=== PATIENT | female | born 1995 | race Caucasian/White ===

== ENCOUNTER 2017-09-11 01:03 | Emergency (ER) | payer BC ==
[~2017-09-11] VITALS: Ht 172.7 cm; Wt 136.1 kg
[~2017-09-11 01:03] MED LIST: ALBU90OI; ALBU90OI INH; AZIT200SU PO; MONT5TCH; RXNEOPOLHC AD
[2017-09-11] MEDS ORDERED: SERT100 PO (01:55)
[2017-09-11] MEDS ORDERED: PSEU120ER PO (06:12)
[2017-09-11] MEDS ORDERED: Zithromax250 MG PO (06:12)
[2017-09-11] MEDS ORDERED: IBUP800 PO (06:12)
== END 2017-09-11 06:23 | disposition home or self-care (01) ==
LOC: ER 01:03
DX: J03.90 Acute tonsillitis, unspecified (principal); H66.91 Otitis media, unspecified, right ear; Z88.0 Allergy status to penicillin; Z88.1 Allergy status to other antibiotic agents; Z79.899 Other long term (current) drug therapy
CPT/HCPCS: 87081; 87430

== ENCOUNTER → 2021-07-20 | Outpatient (CLI) | payer OTHER ==
[~2021-07-20] MED LIST changes: +IBUP800 PO; +PSEU120ER PO; +SERT100 PO; +Zithromax250 MG PO
== END | disposition home or self-care (01) ==
LOC: LAB SHORT 08:31
DX: L60.2 Onychogryphosis (principal); B35.1 Tinea unguium
CPT/HCPCS: 88305; 88312